=== PATIENT | male | born 1995 | race Hispanic/Latino ===

== ENCOUNTER 2021-03-04 09:19 | Emergency (ER) | payer OTHER ==
[2021-03-04 09:32] VITALS: BP 103/66
--- NOTE | 2021-03-04 09:53 | Emergency Department Report ---
ED General Adult HPI - General Chief complaint: Syncope Stated complaint: SYNCOPE/HEAD LAC Time Seen by Provider: 03/04/21 09:36 Source: patient Mode of arrival: Ambulatory Limitations: No Limitations - History of Present Illness Initial comments: 25-year-old male patient presents with his father for syncopal episode and head injury today. Patient states he was in the shower and he is unsure if he slipped and fell. His mother states his roommate found him about 5 minutes after bleeding from the head. Patient reports pain to where the laceration is, but denies any other symptoms including dizziness, vision changes, numbness/tingling/weakness in his limbs, difficulty with speech/ambulation, neck pain, confusion, chest pain, or shortness of breath. He denies any preceding symptoms. He denies any past medical history. No history of DVT/PEs, blood thinners, hemoptysis/cough, or leg pain/swelling per patient. He states he did have a plane ride from [place] that was only about 1-1/2 hours. Severity scale (0 -10): 10 - Related Data Previous Rx's Medication Instructions Recorded Last Taken Type Ibuprofen [Motrin 800 MG tab] 800 mg PO Q8HR PRN #20 tablet 03/04/21 Unknown Rx Mupirocin [Bactroban 2% OINT] 1 applic TP TID 7 Days #1 tube 03/04/21 Unknown Rx cephALEXin [Keflex] 500 mg PO Q12HR 6 Days #12 cap 03/04/21 Unknown Rx Allergies Allergy/AdvReac Type Severity Reaction Status Date / Time No Known Allergies Allergy Verified 03/04/21 09:23 ED Review of Systems ROS: Stated complaint: SYNCOPE/HEAD LAC Other details as noted in HPI Constitutional: denies: chills, diaphoresis, fever, malaise, weakness Respiratory: denies: cough, shortness of breath Cardiovascular: denies: chest pain Gastrointestinal: nausea. denies: abdominal pain, vomiting Genitourinary: denies: urgency, dysuria Musculoskeletal: denies: back pain, arthralgia Neurological: headache. denies: numbness, paresthesias, abnormal gait, vertigo ED Past Medical Hx - Social History Smoking Status: Never Smoker Substance Use Type: None - Medications Home Medications: Home Medications Medication Instructions Recorded Confirmed Last Taken Type Ibuprofen [Motrin 800 MG tab] 800 mg PO Q8HR PRN #20 tablet 03/04/21 Unknown Rx Mupirocin [Bactroban 2% OINT] 1 applic TP TID 7 Days #1 tube 03/04/21 Unknown Rx cephALEXin [Keflex] 500 mg PO Q12HR 6 Days #12 cap 03/04/21 Unknown Rx ED Physical Exam - General Limitations: No Limitations General appearance: alert, in no apparent distress - Head Head exam: Present: normocephalic. Absent: atraumatic (6 cm laceration noted to posterior scalp with minimal active bleeding) - Expanded Head Exam Expanded Head exam: Absent: contusion, hematoma, racoon eyes, diaz's sign, tenderness of temporal artery, CSF rhinorrhea, CSF otorrhea - Eye Eye exam: Present: normal appearance, PERRL, EOMI. Absent: scleral icterus - Neck Neck exam: Present: normal inspection. Absent: tenderness - Respiratory Respiratory exam: Present: normal lung sounds bilaterally. Absent: respiratory distress - Cardiovascular Cardiovascular Exam: Present: regular rate, normal rhythm - GI/Abdominal GI/Abdominal exam: Present: soft. Absent: tenderness - Extremities Exam Extremities exam: Present: full ROM. Absent: tenderness - Neurological Exam Neurological exam: Present: alert, oriented X3, CN II-XII intact, normal gait. Absent: motor sensory deficit - Expanded Neurological Exam Expanded Cerebellar function: Finger to Nose: Normal, Heel to Thomas: Normal, Romberg: Normal Sensory exam: Upper Extremity Light Touch: Normal, Lower Extremity Light Touch: Normal Motor strength exam: RUE: 4, LUE: 4, RLE: 4, LLE: 4 Best Eye Response ([place]): (4) open spontaneously Best Motor Response ([place]): (6) obeys commands Best Verbal Response (Javier): (5) oriented Javier Total: 15 - Psychiatric Psychiatric exam: Present: normal affect, normal mood - Skin Skin exam: Present: warm, dry, intact, normal color. Absent: rash ED Course Vital Signs 03/04/21 03/04/21 03/04/21 09:21 09:30 09:32 Temperature 98.7 F 98.6 F Pulse Rate 58 L 88 88 Respiratory 16 16 16 Rate Blood Pressure 103/66 Blood Pressure 103/60 103/66 [Left] O2 Sat by Pulse 99 96 96 Oximetry - Laceration /Wound Repair Head Wound Location: head Wound Length (cm): 6 Wound's Depth, Shape: linear Wound Explored: no foreign body removed Irrigated w/ Saline (ccs): 100 Anesthesia: Lidocaine w/ Epi Volume Anesthetic (ccs): 8 Number of Sutures: 12 (Stable) Sterile Dressing Applied?: No Progress: Minimal bleeding occurred. Patient tolerated procedure well without any immediate complications. ED Medical Decision Making - Lab Data Result diagrams: 03/04/21 09:51 03/04/21 09:51 Lab Results 03/04/21 03/04/21 03/04/21 Range/Units 09:51 09:51 09:54 WBC 5.8 (4.5-11.0) K/mm3 RBC 4.86 (3.65-5.03) M/mm3 Hgb 14.0 (11.8-15.2) gm/dl Hct 42.2 (35.5-45.6) % MCV 87 (84-94) fl MCH 29 (28-32) pg MCHC 33 (32-34) % RDW 12.8 L (13.2-15.2) % Plt Count 217 (140-440) K/mm3 Lymph % (Auto) 26.3 (13.4-35.0) % [place] % (Auto) 8.2 H (0.0-7.3) % Eos % (Auto) 1.3 (0.0-4.3) % Baso % (Auto) 0.5 (0.0-1.8) % Lymph # (Auto) 1.5 (1.2-5.4) K/mm3 [place] # (Auto) 0.5 (0.0-0.8) K/mm3 Eos # (Auto) 0.1 (0.0-0.4) K/mm3 Baso # (Auto) 0.0 (0.0-0.1) K/mm3 Seg Neutrophils % 63.7 (40.0-70.0) % Seg Neutrophils # 3.7 (1.8-7.7) K/mm3 Sodium 141 (137-145) mmol/L Potassium 4.3 (3.6-5.0) mmol/L Chloride 104.7 (98-107) mmol/L Carbon Dioxide 23 (22-30) mmol/L Anion Gap 18 mmol/L BUN 13 (9-20) mg/dL Creatinine 0.9 (0.8-1.3) mg/dL Estimated GFR > 60 ml/min BUN/Creatinine Ratio 14 % Glucose 90 (75-100) mg/dL Calcium 8.8 (8.4-10.2) mg/dL Total Bilirubin 0.30 (0.1-1.2) mg/dL AST 14 (5-40) units/L ALT 9 (7-56) units/L Alkaline Phosphatase 46 (35-129) units/L Troponin T < 0.010 (0.00-0.029) ng/mL Total Protein 7.4 (6.3-8.2) g/dL Albumin 4.7 (3.9-5) g/dL Albumin/Globulin Ratio 1.7 % TSH 1.730 (0.270-4.200) mlU/mL - EKG Data EKG shows normal: sinus rhythm Rate: normal - EKG Data Interpretation: normal EKG - Radiology Data Radiology results: report reviewed CT head/brain wo con INDICATION / CLINICAL INFORMATION: 25 years Male; head injury, lac, syncope, headache. TECHNIQUE: Routine CT head without contrast. All CT scans at this location are performed using CT dose reduction for ALARA by means of automated exposure control. COMPARISON: None. FINDINGS: BRAIN / INTRACRANIAL CONTENTS: The brain appears to demonstrate appropriate attenuation. The ventricular system is within normal limits in size and configuration. There is no clear CT evidence of acute intracranial hemorrhage or significant mass effect. ORBITS: No significant abnormality of visualized orbits. SINUSES / MASTOIDS: There is mild focal opacification along the anterior left maxillary sinus indicative of small retention cyst. CRANIOCERVICAL JUNCTION: No significant abnormality. ADDITIONAL FINDINGS: None. IMPRESSION: 1. There is no CT evidence of acute intracranial process - Medical Decision Making 25-year-old male patient presents with his father for syncopal episode and head injury today. Patient states he was in the shower and he is unsure if he slipped and fell. His mother states his roommate found him about 5 minutes after bleeding from the head. Patient reports pain to where the laceration is, but denies any other symptoms including dizziness, vision changes, numbness/tingling/weakness in his limbs, difficulty with speech/ambulation, neck pain, confusion, chest pain, or shortness of breath. He denies any preceding symptoms. He denies any past medical history. No history of DVT/PEs, blood thinners, hemoptysis/cough, or leg pain/swelling per patient. He states he did have a plane ride from [place] that was only about 1-1/2 hours. Neuro exam was normal. CT head is negative for any acute abnormalities. No cervical spine tenderness on exam. Wound closed with adrian. Patient tolerated procedure well without any immediate complications. Wound care and strict return precautions were discussed in detail with patient who verbalizes understanding. Keflex and mupirocin given for infection prophylaxis. Discussed concussion and importance of brain rest. Patient also informed to have someone stay with him and watch him for the next 24 hours and while asleep tonight. Critical care attestation.: If time is entered above; I have spent that time in minutes in the direct care of this critically ill patient, excluding procedure time. ED Disposition Clinical Impression: Laceration of head, Head injury, Concussion Disposition: 01 HOME / SELF CARE / HOMELESS Is pt being admited?: No Condition: Stable Instructions: Head Injury, Adult, Concussion, Adult Prescriptions: Mupirocin [Bactroban 2% OINT] 1 applic TP TID 7 Days #1 tube cephALEXin [Keflex] 500 mg PO Q12HR 6 Days #12 cap Ibuprofen [Motrin 800 MG tab] 800 mg PO Q8HR PRN #20 tablet PRN Reason: pain Referrals: [facility] [Provider Group] - as needed PRIMARY CARE, [Primary Care Provider] - 2-3 Days Forms: Work/School Release Form(ED)
[2021-03-04] MEDS ORDERED: ACETAMINOPHEN 325 MG TAB PO ONE (10:23)
[2021-03-04] MEDS ORDERED: HYDROcodone/ACETAMINOPHEN 5-325 MG TAB PO ONE (10:23)
[2021-03-04 10:30] LABS: Alanine Aminotransferase 9 units/L (7-56); Albumin 4.7 g/dL (3.9-5); BUN/Creatinine Ratio 14; Blood Urea Nitrogen 13 mg/dL (9-20); Calcium 8.8 mg/dL (8.4-10.2); Hemolysis Index 11
[2021-03-04] MEDS ORDERED: LIDOCAINE 1%/EPINEPHRINE 1:100,000 VIAL (20 ML) INFILTRATI SCH (10:30)
[2021-03-04 10:50] LABS: Basophils % (Auto) 0.5 % (0.0-1.8); Eosinophils # (Auto) 0.1 K/mm3 (0.0-0.4); Eosinophils % (Auto) 1.3 % (0.0-4.3); Hematocrit 42.2 % (35.5-45.6); Lymphocytes # (Auto) 1.5 K/mm3 (1.2-5.4); Lymphocytes % (Auto) 26.3 % (13.4-35.0); Mean Corpuscular HGB Conc 33 % (32-34); Mean Corpuscular Volume 87 fl (84-94); Monocytes # (Auto) 0.5 K/mm3 (0.0-0.8); Monocytes % (Auto) 8.2 % (0.0-7.3); Platelet Count 217 K/mm3 (140-440); Red Blood Count 4.86 M/mm3 (3.65-5.03); Red Cell Distribution Width 12.8 % (13.2-15.2)
[2021-03-04] MEDS ORDERED: IBUPROFEN 800 MG TAB PO STA (13:08)
[2021-03-04] MEDS ORDERED: ONDANSETRON 4 MG ODT TAB PO ONE (13:08)
--- NOTE | 2021-03-04 13:19 | Cat Scan Report ---
CT head/brain wo con INDICATION / CLINICAL INFORMATION: 25 years Male; head injury, lac, syncope, headache. TECHNIQUE: Routine CT head without contrast. All CT scans at this location are performed using CT dos e reduction for ALARA by means of automated exposure control. COMPARISON: None. FINDINGS: BRAIN / INTRACRANIAL CONTENTS: The brain appears to demonstrate appropriate attenuation. The ventricu lar system is within normal limits in size and configuration. There is no clear CT evidence of acute intracranial hemorrhage or significant mass effect. ORBITS: No significant abnormality of visualized orbits. SINUSES / MASTOIDS: There is mild focal opacification along the anterior left maxillary sinus indicat alex of small retention cyst. CRANIOCERVICAL JUNCTION: No significant abnormality. ADDITIONAL FINDINGS: None. IMPRESSION: 1. There is no CT evidence of acute intracranial process Signer Name: Oscar Wong MD Signed: 03/04/2021 1:15 PM Workstation Name: [id number]
--- NOTE | 2021-03-05 10:40 | Electrocardiograph Report ---
[facility] Test Date: 2021-03-04 Test Time: 09:50:04 Pat Name: LIVE CHOWDHURY Department: Room: Gender: M [employer] Pork: KARINA : 1995 Requested By: BRADLY HWITTAKER Order Number: [id number] Reading MD: Jerald Jorge Measurements Intervals [place] Rate: 53 P: 64 [place]: 130 QRS: 74 QRSD: 117 T: 34 QT: 440 QTc: 415 Interpretive Statements Sinus rhythm Nonspecific intraventricular conduction delay Lateral infarct, recent No previous ECG available for comparison Electronically Signed On 03-05-2021 10:40:24 EST by Jerald Jorge
== END 2021-03-04 13:52 | disposition home or self-care (01) ==
LOC: ED 09:19
DX: S06.0X0A Concussion without loss of consciousness, initial encounter (principal); S01.01XA Laceration without foreign body of scalp, initial encounter; R94.6 Abnormal results of thyroid function studies; W01.0XXA Fall on same level from slipping, tripping and stumbling without subsequent striking against object, initial encounter; Y93.89 Activity, other specified; Y92.89 Other specified places as the place of occurrence of the external cause; Y99.8 Other external cause status
CPT/HCPCS: 12002; 36415; 70450; 80053; 84443; 84484; 85025; 93005; 99284; J3490; Q0162